=== PATIENT | female | born 1940 | race Caucasian/White ===

== ENCOUNTER 2016-07-15 13:44 | Emergency (ER) | payer OTHER ==
[~2016-07-15] VITALS: Ht 160 cm; Wt 64.0 kg
[~2016-07-15 13:44] MED LIST: CALCIUM + VITA1 EACH PO; LO-DOSE ASPIRIN81 M1 PO
[2016-07-15 14:12] LABS: HEMATOCRIT 38.8 % (36.0-46.0); MCH 31.5 PG (29.0-34.0); MCHC 35.6 G/DL (30.0-36.0); MCV 88.6 FL (83-99); MEAN PLAT.VOLUME 9.3 uM^3 (9.5-12.4); PLATELET COUNT 217 K/uL (156-360); RBC DIS.WIDTH-CV 12.2 % (11.8-14.6); RBC DIS.WIDTH-SD 38.7 % (39-53); RED BLOOD COUNT 4.38 M/uL (3.80-5.20)
[2016-07-15 14:20] LABS: CHLORIDE 103 mEq/L (99-109); POTASSIUM 3.3 mEq/L (3.7-5.4); SODIUM 141 mEq/L (136-147)
[2016-07-15 14:23] LABS: GLUCOSE 108 mg/dL (70-99)
[2016-07-15 14:24] LABS: ANION GAP 14 MEQ/L (2-14); TOTAL BILIRUBIN 1.6 mg/dL (0.0-1.0)
[2016-07-15 14:26] LABS: ALKALINE PHOSPHATASE 88 IU/L (3-129); GFR ESTIMATE (CALCULATED) > 59 mL/min/
[2016-07-15 14:27] LABS: UREA NITROGEN (BUN) 11 mg/dL (9-23)
[2016-07-15] MEDS ORDERED: CIPRO500 MG PO (16:10)
[2016-07-15] MEDS ORDERED: TYLENOL WITH C1 EACH PO (16:10)
[2016-07-15] MEDS ORDERED: FLAGYL500 MG PO (16:10)
[2016-07-15 16:26] VITALS: BP 131/72
== END 2016-07-15 16:28 | disposition home or self-care (01) ==
LOC: EME 13:44
DX: K57.32 Diverticulitis of large intestine without perforation or abscess without bleeding (principal); E87.6 Hypokalemia; Z85.42 Personal history of malignant neoplasm of other parts of uterus; Z90.710 Acquired absence of both cervix and uterus; Z87.891 Personal history of nicotine dependence; Z91.040 Latex allergy status
CPT/HCPCS: 74176; 80053; 81003; 85027; 99281; 99285

== ENCOUNTER 2016-09-21 10:12 | Emergency (ER) | payer OTHER ==
[~2016-09-21] VITALS: Ht 160 cm; Wt 65.8 kg
[~2016-09-21 10:12] MED LIST changes: +CIPRO500 MG PO; +FLAGYL500 MG PO; +TYLENOL WITH C1 EACH PO
[2016-09-21 11:08] LABS: MCH 30.5 PG (29.0-34.0); MCHC 33.6 G/DL (30.0-36.0); MCV 90.9 FL (83-99); MEAN PLAT.VOLUME 9.4 uM^3 (9.5-12.4); PLATELET COUNT 227 K/uL (156-360); RBC DIS.WIDTH-CV 12.3 % (11.8-14.6); RBC DIS.WIDTH-SD 40.8 % (39-53); RED BLOOD COUNT 4.62 M/uL (3.80-5.20); WHITE BLOOD COUNT 7.1 K/uL (4.1-10.2)
[2016-09-21 11:26] LABS: CHLORIDE 104 mEq/L (99-109); SODIUM 139 mEq/L (136-147)
[2016-09-21 11:28] LABS: GLUCOSE 81 mg/dL (70-99)
[2016-09-21 11:30] LABS: ANION GAP 12 MEQ/L (2-14); TOTAL BILIRUBIN 1.2 mg/dL (0.0-1.0)
[2016-09-21 11:32] LABS: ALKALINE PHOSPHATASE 85 IU/L (3-129); GFR ESTIMATE (CALCULATED) > 59 mL/min/
[2016-09-21 11:33] LABS: UREA NITROGEN (BUN) 15 mg/dL (9-23)
[2016-09-21 11:45] LABS: ADD MIUA? YES; BILIRUBIN NEGATIVE; BLOOD NEGATIVE; COLOR YELLOW ((YELLOW)); GLUCOSE (STRIP) NEGATIVE; KETONES NEGATIVE; LEUKOCYTES MODERATE; NITRITE NEGATIVE; PROTEIN (STRIP) NEGATIVE; UROBILINOGEN 0.2 MG/DL (0.2-1.0)
[2016-09-21 11:55] LABS: BACTERIA NONE SEEN /HPF; CALCIUM OXALATE CRYSTALS 4+ /HPF; EPITHELIAL CELLS 1+ /HPF; MUCUS TRACE /LPF; RED BLOOD CELLS 0-5 /HPF (0-5); UCUL ADDED? NO
[2016-09-21] MEDS ORDERED: CIPRO500 MG PO (14:03)
[2016-09-21] MEDS ORDERED: FLAGYL500 MG PO (14:03)
[2016-09-21 15:08] VITALS: BP 145/95
== END 2016-09-21 15:09 | disposition home or self-care (01) ==
LOC: EME 10:12
PROVIDERS: Nurse Practitioner Family
DX: K57.32 Diverticulitis of large intestine without perforation or abscess without bleeding (principal); R03.0 Elevated blood-pressure reading, without diagnosis of hypertension; N20.0 Calculus of kidney; Z85.42 Personal history of malignant neoplasm of other parts of uterus; Z90.710 Acquired absence of both cervix and uterus; Z87.891 Personal history of nicotine dependence; Z79.82 Long term (current) use of aspirin
CPT/HCPCS: 74177; 80053; 81003; 83605; 85027; 99281; 99284; J1885; J7040